=== PATIENT | male | born 1970 | race Caucasian/White ===

== ENCOUNTER 2020-12-10 17:21 | Emergency (ER) | payer MEDICARE, OTHER ==
[~2020-12-10 17:21] MED LIST: ASPIRIN325 MG PO; CITALOPRAM HBR20 MG PO; CLARITIN10 M2 PO; CYCLOBENZAPRINE10 MG PO; DOXYCYCLINE HY100 M2 PO; IBUPROFEN800 MG PO; ISOSORBIDE DINI30 MG PO; JARDIANCE10 MG PO; LANTUS SOL100 UNIT/1 SQ; LOPRESSOR 25 MG25 MG PO; LOSARTAN POTAS100 MG PO; METFORMIN HCL500 MG PO; METOPROLOL TART50 MG PO; NICOTINE PATCH1 EAC2 TOP; PANTOPRAZOLE SO40 M2 PO; PREDNISONE20 MG PO; PROAIR HFA8.5 GM INH; VIBRAMYCIN 100100 MG PO; VITAMIN D21250 MCG PO; ZOCOR 40 MG TAB40 MG PO
[2020-12-10 22:05] LABS: HEMOGLOBIN 17.7 gm/dl (14.0-17.5); RED BLOOD COUNT 5.54 M/UL (4.20-5.50); WHITE BLOOD COUNT 11.6 K/UL (4.5-11.0)
[2020-12-10 22:16] LABS: BUN/CREATININE RATIO 17 (0-10)
[2020-12-11] MEDS ORDERED: ZITHROMAX250 MG PO (03:47)
[2020-12-11] MEDS ORDERED: ZOFRAN 4 MG TAB4 MG PO (03:47)
== END 2020-12-11 04:00 | disposition home or self-care (01) ==
LOC: ER1 17:21
PROVIDERS: Physician Assistant Medical
DX: H83.09 Labyrinthitis, unspecified ear (principal); K86.9 Disease of pancreas, unspecified; H73.892 Other specified disorders of tympanic membrane, left ear; I12.9 Hypertensive chronic kidney disease with stage 1 through stage 4 chronic kidney disease, or unspecified chronic kidney disease; E11.22 Type 2 diabetes mellitus with diabetic chronic kidney disease; N18.9 Chronic kidney disease, unspecified; J44.9 Chronic obstructive pulmonary disease, unspecified; F17.210 Nicotine dependence, cigarettes, uncomplicated; Z79.84 Long term (current) use of oral hypoglycemic drugs
CPT/HCPCS: 70450; 71045; 80053; 81001; 82009; 82550; 82553; 83874; 84484; 85025; 85610; 93005; 99284; Q9967

== ENCOUNTER → 2021-01-17 | Outpatient (CLI) | payer MEDICARE, OTHER ==
[~2021-01-17] MED LIST changes: +ZITHROMAX250 MG PO; +ZOFRAN 4 MG TAB4 MG PO
== END ==
LOC: MRI 10:15
DX: C25.9 Malignant neoplasm of pancreas, unspecified (principal); K86.89 Other specified diseases of pancreas; R63.4 Abnormal weight loss; K74.69 Other cirrhosis of liver
CPT/HCPCS: 74183; A9577

== ENCOUNTER → 2021-01-28 | Day surgery (SDC) | payer MEDICARE, OTHER | END | disposition home or self-care (01) | LOC: OR 06:15 | DX: C25.9 Malignant neoplasm of pancreas, unspecified (principal); G47.10 Hypersomnia, unspecified; G47.33 Obstructive sleep apnea (adult) (pediatric); G25.81 Restless legs syndrome; E11.9 Type 2 diabetes mellitus without complications; E78.5 Hyperlipidemia, unspecified; I10 Essential (primary) hypertension; F41.9 Anxiety disorder, unspecified; F32.9 Major depressive disorder, single episode, unspecified; J44.9 Chronic obstructive pulmonary disease, unspecified; F17.210 Nicotine dependence, cigarettes, uncomplicated; Z79.82 Long term (current) use of aspirin; Z79.4 Long term (current) use of insulin; Z79.899 Other long term (current) drug therapy | CPT/HCPCS: 71045; 77001; 82962; C1769; C1788; J0690; J1100; J1642; J2001; J2250; J2405; J2704; J3010; J7030; J7040; J7120 ==

== ENCOUNTER → 2021-03-18 | Outpatient (CLI) | payer MEDICARE, OTHER | LOC: HEART 5 07:40 | DX: I20.8 Other forms of angina pectoris (principal); R06.02 Shortness of breath | CPT/HCPCS: 78452; 93306; A9502; J2785 ==

== ENCOUNTER 2021-10-18 20:33 | Inpatient (IN) | payer MEDICARE, OTHER ==
[~2021-10-18] VITALS: Ht 180.3 cm; Wt 99.8 kg
[2021-10-18 21:57] LABS: HEMOGLOBIN 14.4 gm/dl (14.0-17.5); RED BLOOD COUNT 4.31 M/UL (4.20-5.50); WHITE BLOOD COUNT 18.6 K/UL (4.5-11.0)
[2021-10-18 22:10] LABS: BORDETELLA PARAPERTUSSIS Not Detected (Not Detectd); BORDETELLA PERTUSSIS Not Detected (Not Detectd); CHLAMYDIA PNEUMONIAE Not Detected (Not Detectd); CORONAVIRUS HKU1 Not Detected (Not Detectd); CORONAVIRUS NL63 Not Detected (Not Detectd); CORONAVIRUS OC43 Not Detected (Not Detectd); CORONOAVIRUS 229E Not Detected (Not Detectd); HUMAN METAPNEUMOVIRUS Not Detected (Not Detectd); HUMAN RHINOVIRUS/ENTEROVIRUS Not Detected (Not Detectd); INFLUENZA A Not Detected (Not Detectd); INFLUENZA B Not Detected (Not Detectd); MYCOPLASMA PNEUMONIAE Not Detected (Not Detectd); PARAINFLUENZA VIRUS 1 Not Detected (Not Detectd); PARAINFLUENZA VIRUS 2 Not Detected (Not Detectd); PARAINFLUENZA VIRUS 3 Not Detected (Not Detectd); PARAINFLUENZA VIRUS 4 Not Detected (Not Detectd); RESPIRATORY SYNCYTIAL VIRUS Not Detected (Not Detectd)
[2021-10-18 22:28] LABS: BUN/CREATININE RATIO 13 (0-10)
[2021-10-18 23:37] LABS: SARS-CoV-2 NOT DETECTED (Not Detectd)
[2021-10-19 07:30] LABS: HEMOGLOBIN 13.4 gm/dl (14.0-17.5); RED BLOOD COUNT 4.08 M/UL (4.20-5.50); WHITE BLOOD COUNT 14.6 K/UL (4.5-11.0)
[2021-10-19 08:04] LABS: BUN/CREATININE RATIO 12 (0-10)
[2021-10-19] MEDS ORDERED: LOVENOX SY40 MG/0.4 SQ (13:30)
[2021-10-19] MEDS ORDERED: METOCLOPRAMIDE10 MG PO (13:31)
[2021-10-19] MEDS ORDERED: GABAPENTIN300 MG PO (13:32)
[2021-10-19] MEDS ORDERED: ROXICODONE5 MG PO (13:32)
[2021-10-19] MEDS ORDERED: ONDANSETRON HCL8 MG PO (13:44)
[2021-10-19] MEDS ORDERED: METOPROLOL TART25 MG PO (13:45)
[2021-10-19] MEDS ORDERED: ISOSORBIDE MONO10 MG PO (13:47)
--- NOTE | 2021-10-19 17:44 | NUR ---
DR TOWNSEND PERFORMED THORACENTESIS TO RIGHT LUNG AT BEDSIDE. REMOVED 1.5 LITERS OF FLUID. PT TOLERATED WELL AND FLUIDS SENT OFF FOR PATHOLOGY TESTS PER MD. PT SITE COVERED WITH 4X4 AND TAPE. CDI. WCRED. WNL.
[2021-10-19 19:26] LABS: BODY FLUID SOURCE PLEURAL; MONONUCLEAR CELLS 62.1 (75-100); POLYMORPHONUCLEAR % 37.9 (0-25); RBC (AUTOMATED) 4000 (0-100000); WBC (AUTOMATED) 1869 (0-500)
[2021-10-19 19:47] LABS: LDH, BODY FLUID 162 U/L; TOTAL PROTEIN, BODY FLUID 3.6 gm/dL
[2021-10-20 05:22] LABS: HEMOGLOBIN 12.6 gm/dl (14.0-17.5); RED BLOOD COUNT 3.95 M/UL (4.20-5.50); WHITE BLOOD COUNT 16.9 K/UL (4.5-11.0)
[2021-10-20 05:54] LABS: BUN/CREATININE RATIO 20 (0-10)
--- NOTE | 2021-10-20 08:44 | NUR ---
PATIENT OXYGEN SATURATION IS 85 ON 10L NC. VERY DEMINISHED LUNG SOUNDS IN THE RIGHT LUNG. PATIENT PLACED ON 15L NON-REBREATHER. STAT CHEST X-RAY ORDERED. DR. TOWNSEND NOTIFIED AND AWARE OF PATINET CONDITION.
[2021-10-21 05:45] LABS: HEMOGLOBIN 12.6 gm/dl (14.0-17.5); RED BLOOD COUNT 3.91 M/UL (4.20-5.50); WHITE BLOOD COUNT 14.3 K/UL (4.5-11.0)
[2021-10-21 06:14] LABS: BUN/CREATININE RATIO 9 (0-10)
[2021-10-22 04:42] LABS: HEMOGLOBIN 13.3 gm/dl (14.0-17.5); RED BLOOD COUNT 4.13 M/UL (4.20-5.50)
[2021-10-22 05:02] LABS: BUN/CREATININE RATIO 16 (0-10)
[2021-10-23 04:22] LABS: HEMOGLOBIN 13.7 gm/dl (14.0-17.5); RED BLOOD COUNT 4.16 M/UL (4.20-5.50); WHITE BLOOD COUNT 16.7 K/UL (4.5-11.0)
[2021-10-23 05:01] LABS: BUN/CREATININE RATIO 15 (0-10)
[2021-10-23] MEDS ORDERED: MEDROL4 MG PO (16:32)
[2021-10-23] MEDS ORDERED: LEVOFLOXACIN500 MG PO (16:32)
--- NOTE | 2021-10-23 16:38 | NUR ---
PATIENTS ROOM AIR SATURATION RANGES FROM 89-91%.
--- NOTE | 2021-10-23 17:09 | NUR ---
PATIENTS OXYGEN SATURATION IS 86% WITH EXERTION.
== END 2021-10-23 19:30 | disposition home or self-care (01) | DRG 871 ==
LOC: ER1 20:33 → CDU 10-19 00:04 → CCU 10-19 00:04 → PROG CARE 10-21 17:51
PROVIDERS: Family Medicine; Internal Medicine; Physician Assistant Medical; ADMIT Internal Medicine
PROC: 0W993ZZ Drainage of Right Pleural Cavity, Percutaneous Approach (ICD-10-PCS; 2021-10-19)
PROC: BB4BZZZ Ultrasonography of Pleura (ICD-10-PCS; 2021-10-19)
PROC: 5A0935A Assistance with Respiratory Ventilation, Less than 24 Consecutive Hours, High Flow/Velocity Cannula (ICD-10-PCS; principal; 2021-10-20)
PROC: 5A09357 Assistance with Respiratory Ventilation, Less than 24 Consecutive Hours, Continuous Positive Airway Pressure (ICD-10-PCS; 2021-10-20)
DX: A41.9 Sepsis, unspecified organism (principal); J18.9 Pneumonia, unspecified organism; J96.01 Acute respiratory failure with hypoxia; Z20.822 Contact with and (suspected) exposure to COVID-19; R65.21 Severe sepsis with septic shock; C25.9 Malignant neoplasm of pancreas, unspecified; J93.9 Pneumothorax, unspecified; R18.8 Other ascites; J98.11 Atelectasis; J44.0 Chronic obstructive pulmonary disease with (acute) lower respiratory infection; J90 Pleural effusion, not elsewhere classified; J44.1 Chronic obstructive pulmonary disease with (acute) exacerbation; E11.65 Type 2 diabetes mellitus with hyperglycemia; I45.10 Unspecified right bundle-branch block; E66.9 Obesity, unspecified; I25.10 Atherosclerotic heart disease of native coronary artery without angina pectoris; I10 Essential (primary) hypertension; T38.0X5A Adverse effect of glucocorticoids and synthetic analogues, initial encounter; Z80.1 Family history of malignant neoplasm of trachea, bronchus and lung; Z87.891 Personal history of nicotine dependence; Z68.30 Body mass index [BMI] 30.0-30.9, adult; Z79.4 Long term (current) use of insulin
CPT/HCPCS: 36415; 36600; 71045; 71275; 80048; 80053; 80202; 81001; 82150; 82550; 82553; 82803; 82945; 82962; 83605; 83615; 83690; 83735; 83874; 83986; 84157; 84484; 85025; 85027; 85610; 86140; 87040; 87070; 87205; 87633; 89051; 93005; 93970; 94640; 94660; 94664; 94760; 96374; 99285; J1100; J1885; J2270; J2405; J2543; J2920; J3370; J7030; J7050; J7070; J7120; Q9967

== ENCOUNTER → 2022-05-01 | Day surgery (SDC) | payer MEDICARE, OTHER ==
[~2022-05-01] MED LIST changes: +GABAPENTIN300 MG PO; +HUMALOG100 UNIT/3 SC; +HYDROCODON-ACE1 EAC4 PO; +ISOSORBIDE MONO10 MG PO; +LEVOFLOXACIN500 MG PO; +LOVENOX SY40 MG/0.4 SQ; +MEDROL4 MG PO; +METOCLOPRAMIDE10 MG PO; +METOPROLOL TART25 MG PO; +ONDANSETRON HCL8 MG PO; +PREDNISONE 20 M20 MG GT; +PROTONIX 40 MG40 M1 PO; +ROXICODONE5 MG PO
== END | disposition home or self-care (01) ==
LOC: OR 06:33
DX: K29.50 Unspecified chronic gastritis without bleeding (principal); K25.9 Gastric ulcer, unspecified as acute or chronic, without hemorrhage or perforation; K31.A11 Gastric intestinal metaplasia without dysplasia, involving the antrum; J44.9 Chronic obstructive pulmonary disease, unspecified; I10 Essential (primary) hypertension; F17.200 Nicotine dependence, unspecified, uncomplicated; Z85.07 Personal history of malignant neoplasm of pancreas; Z96.89 Presence of other specified functional implants
CPT/HCPCS: J2704